=== PATIENT | male | born 1955 | race Caucasian/White ===

== ENCOUNTER 2019-10-27 10:35 | Emergency (ER) | payer OTHER ==
[~2019-10-27] VITALS: Ht 188 cm; Wt 122.5 kg
[~2019-10-27 10:35] MED LIST: KETO10 PO; LORA1 PO; MECL25 PO; METH10; OXYACE5T PO; PROM25 PO; Percocet 5-3251 EACH PO; RANI150; Zofran Odt4 MG SL
[2019-10-27] MEDS ORDERED: ALLO300 PO (11:20)
[2019-10-27] MEDS ORDERED: Catapres0.2 MG PO (11:21)
[2019-10-27] MEDS ORDERED: AMLO10 PO (11:21)
[2019-10-27] MEDS ORDERED: CYCL10 PO (11:21)
[2019-10-27] MEDS ORDERED: HYDHCL25 PO (11:22)
[2019-10-27] MEDS ORDERED: PREG100 PO (11:23)
[2019-10-27] MEDS ORDERED: GENPREOPSU (11:23)
[2019-10-27 11:25] LABS: BASOPHILS ABSOLUTE AUTO 0.12 K/mm3 (0.00-0.23); BASOPHILS PERCENT AUTO 2 % (0-2); EOSINOPHILS ABSOLUTE AUTO 0.94 K/mm3 (0.00-0.68); EOSINOPHILS PERCENT AUTO 13 % (0-6); Hematocrit 48.4 % (37.0-53.0); Hemoglobin 16.1 g/dL (13.5-17.5); IMMATURE GRAN ABSOLUTE AUTO 0.01 K/mm3 (0.00-0.10); IMMATURE GRAN PERCENT AUTO 0 % (0-1); LYMPHOCYTES ABSOLUTE AUTO 1.64 K/mm3 (0.84-5.20); LYMPHOCYTES PERCENT AUTO 22 % (21-46); MONOCYTES ABSOLUTE AUTO 0.64 K/mm3 (0.16-1.47); MONOCYTES PERCENT AUTO 9 % (4-13); Mean Corpuscular HGB 31.8 pg (26.0-34.0); Mean Corpuscular HGB Conc 33.3 g/dL (31.5-36.5); Mean Corpuscular Volume 96 fL (80-100); NEUTROPHILS ABSOLUTE AUTO 4.09 K/mm3 (1.96-9.15); NEUTROPHILS PERCENT AUTO 55 % (41-73); Platelet Count 253 K/mm3 (150-400); RDW Standard Deviation 45.8 fL (35.1-46.3); Red Blood Cell Count 5.06 M/mm3 (4.30-5.90); White Blood Cell Count 7.44 K/mm3 (4.00-11.30)
[2019-10-27 11:39] LABS: Alanine Aminotransfer (ALT/SGP 27 U/L (12-78); Albumin, Blood 3.7 g/dL (3.4-5.0); Albumin/Globulin Ratio 1.1 (0.8-1.8); Alk Phos 87 U/L (50-136); Anion Gap 5 mmol/L (6-16); Aspartate Aminotrans (AST/SGOT 16 U/L (12-37); Bilirubin, Total 0.5 mg/dL (0.1-1.0); Blood Urea Nitrogen 11 mg/dL (8-24); Bun/Creatinine Ratio 13.4 (12.0-20.0); CO2, Blood 25 mmol/L (21-32); Calcium, Blood 8.8 mg/dL (8.5-10.1); Chloride, Blood 111 mmol/L (98-108); Creatinine, Blood 0.82 mg/dL (0.60-1.20); Globulin, Blood 3.4 g/dL (2.2-4.0); Glomerular Filtration Rate >60 (60-); Glucose, Blood 119 mg/dL (70-99); Potassium, Blood 4.1 mmol/L (3.5-5.5); Sodium, Blood 141 mmol/L (136-145); Total Protein, Blood 7.1 g/dL (6.4-8.2); Troponin I <0.015 ng/mL (0.000-0.040)
== END 2019-10-27 13:10 | disposition home or self-care (01) ==
LOC: ER 10:35
PROVIDERS: Emergency Medicine
DX: R07.9 Chest pain, unspecified (principal); Z79.899 Other long term (current) drug therapy
CPT/HCPCS: 36415; 71046; 80053; 83690; 84484; 85025; 93005; 93010; 99284-25

== ENCOUNTER 2020-09-25 17:57 | Emergency (ER) | payer OTHER ==
[~2020-09-25] VITALS: Ht 190.5 cm; Wt 133.8 kg
[~2020-09-25 17:57] MED LIST changes: +ALLO300 PO; +AMLO10 PO; +CYCL10 PO; +Catapres0.2 MG PO; +GENPREOPSU; +HYDHCL25 PO; +PREG100 PO
[2020-09-25] MEDS ORDERED: Vitamin D2000 UNIT PO (18:24)
[2020-09-25] MEDS ORDERED: COLCHICINE0.6 MG PO (18:24)
[2020-09-25] MEDS ORDERED: CYCL10 PO (18:25)
[2020-09-25] MEDS ORDERED: Vitamin B-121000 MCG PO (18:25)
[2020-09-25] MEDS ORDERED: Norco 10-325 T1 EACH PO (18:26)
[2020-09-25] MEDS ORDERED: LIDO5TO TOP (18:26)
[2020-09-25] MEDS ORDERED: Prinivil10 MG PO (18:27)
[2020-09-25 18:55] LABS: BASOPHILS ABSOLUTE AUTO 0.13 K/mm3 (0.00-0.23); BASOPHILS PERCENT AUTO 2 % (0-2); EOSINOPHILS ABSOLUTE AUTO 0.72 K/mm3 (0.00-0.68); EOSINOPHILS PERCENT AUTO 9 % (0-6); Hematocrit 44.4 % (37.0-53.0); Hemoglobin 14.8 g/dL (13.5-17.5); IMMATURE GRAN ABSOLUTE AUTO 0.02 K/mm3 (0.00-0.10); IMMATURE GRAN PERCENT AUTO 0 % (0-1); LYMPHOCYTES ABSOLUTE AUTO 1.99 K/mm3 (0.84-5.20); LYMPHOCYTES PERCENT AUTO 24 % (21-46); MONOCYTES PERCENT AUTO 10 % (4-13); Mean Corpuscular HGB 31.6 pg (26.0-34.0); Mean Corpuscular HGB Conc 33.3 g/dL (31.5-36.5); Mean Corpuscular Volume 95 fL (80-100); Mean Platelet Volume 10.5 fL (9.1-12.4); NEUTROPHILS ABSOLUTE AUTO 4.71 K/mm3 (1.96-9.15); NEUTROPHILS PERCENT AUTO 56 % (41-73); Platelet Count 226 K/mm3 (150-400); RDW Standard Deviation 45.3 fL (35.1-46.3); Red Blood Cell Count 4.69 M/mm3 (4.30-5.90); White Blood Cell Count 8.37 K/mm3 (4.00-11.30)
[2020-09-25 19:09] LABS: Alanine Aminotransfer (ALT/SGP 26 U/L (12-78); Albumin, Blood 3.6 g/dL (3.4-5.0); Albumin/Globulin Ratio 1.2 (0.8-1.8); Alk Phos 81 U/L (50-136); Anion Gap 6 mmol/L (6-16); Aspartate Aminotrans (AST/SGOT 16 U/L (12-37); Bilirubin, Total 0.4 mg/dL (0.1-1.0); Blood Urea Nitrogen 18 mg/dL (8-24); Bun/Creatinine Ratio 16.4 (12.0-20.0); CO2, Blood 28 mmol/L (21-32); Calcium, Blood 8.8 mg/dL (8.5-10.1); Chloride, Blood 110 mmol/L (98-108); Globulin, Blood 2.9 g/dL (2.2-4.0); Glomerular Filtration Rate >60 (60-); Glucose, Blood 93 mg/dL (70-99); Sodium, Blood 144 mmol/L (136-145); Total Protein, Blood 6.5 g/dL (6.4-8.2); Troponin I <0.015 ng/mL (0.000-0.040)
[2020-09-25] MEDS ORDERED: Prednisone50 MG PO (22:08)
[2020-09-25] MEDS ORDERED: TIOT18 INH (22:08)
[2020-09-25] MEDS ORDERED: ALBU90OI INH (22:08)
== END 2020-09-25 22:21 | disposition home or self-care (01) ==
LOC: ER 17:57
PROVIDERS: Emergency Medicine
DX: J44.9 Chronic obstructive pulmonary disease, unspecified (principal); I10 Essential (primary) hypertension; K21.9 Gastro-esophageal reflux disease without esophagitis; F17.200 Nicotine dependence, unspecified, uncomplicated; Z79.899 Other long term (current) drug therapy; Z88.5 Allergy status to narcotic agent; Z88.8 Allergy status to other drugs, medicaments and biological substances; Z87.442 Personal history of urinary calculi
CPT/HCPCS: 71046; 71260; 80053; 83690; 83880; 84484; 85025; 93005; 93010; 94640; 94664; 99285-25; J1100; Q9967

== ENCOUNTER 2020-11-23 20:14 | Emergency (ER) | payer OTHER ==
[~2020-11-23] VITALS: Ht 188 cm; Wt 136.1 kg
[~2020-11-23 20:14] MED LIST changes: +ALBU90OI INH; +COLCHICINE0.6 MG PO; +LIDO5TO TOP; +Norco 10-325 T1 EACH PO; +Prednisone50 MG PO; +Prinivil10 MG PO; +TIOT18 INH; +Vitamin B-121000 MCG PO; +Vitamin D2000 UNIT PO
[2020-11-23 20:51] LABS: BASOPHILS ABSOLUTE AUTO 0.13 K/mm3 (0.00-0.23); BASOPHILS PERCENT AUTO 1 % (0-2); EOSINOPHILS PERCENT AUTO 19 % (0-6); Hemoglobin 15.3 g/dL (13.5-17.5); IMMATURE GRAN ABSOLUTE AUTO 0.02 K/mm3 (0.00-0.10); IMMATURE GRAN PERCENT AUTO 0 % (0-1); LYMPHOCYTES ABSOLUTE AUTO 2.46 K/mm3 (0.84-5.20); LYMPHOCYTES PERCENT AUTO 26 % (21-46); MONOCYTES ABSOLUTE AUTO 0.66 K/mm3 (0.16-1.47); MONOCYTES PERCENT AUTO 7 % (4-13); Mean Corpuscular HGB 30.7 pg (26.0-34.0); Mean Corpuscular HGB Conc 32.6 g/dL (31.5-36.5); Mean Corpuscular Volume 94 fL (80-100); NEUTROPHILS ABSOLUTE AUTO 4.34 K/mm3 (1.96-9.15); NEUTROPHILS PERCENT AUTO 46 % (41-73); Platelet Count 249 K/mm3 (150-400); RDW Coefficient Variation 13.2 % (11.7-14.2); RDW Standard Deviation 46.5 fL (35.1-46.3); Red Blood Cell Count 4.98 M/mm3 (4.30-5.90); White Blood Cell Count 9.41 K/mm3 (4.00-11.30)
[2020-11-23 21:12] LABS: Alanine Aminotransfer (ALT/SGP 31 U/L (12-78); Albumin, Blood 3.8 g/dL (3.4-5.0); Albumin/Globulin Ratio 1.1 (0.8-1.8); Alk Phos 85 U/L (50-136); Anion Gap 8 mmol/L (6-16); Aspartate Aminotrans (AST/SGOT 19 U/L (12-37); Bilirubin, Total 0.4 mg/dL (0.1-1.0); Blood Urea Nitrogen 18 mg/dL (8-24); Bun/Creatinine Ratio 19.8 (12.0-20.0); CO2, Blood 27 mmol/L (21-32); Calcium, Blood 9.2 mg/dL (8.5-10.1); Chloride, Blood 104 mmol/L (98-108); Creatinine, Blood 0.91 mg/dL (0.60-1.20); Globulin, Blood 3.4 g/dL (2.2-4.0); Glomerular Filtration Rate >60 (60-); Glucose, Blood 157 mg/dL (70-99); Potassium, Blood 4.2 mmol/L (3.5-5.5); Sodium, Blood 139 mmol/L (136-145); Total Protein, Blood 7.2 g/dL (6.4-8.2)
[2020-11-23 22:13] LABS: Source, Urine Clean Catch
[2020-11-23 22:15] LABS: Bilirubin, Urine Neg (Neg); Blood, Urine 1+ (Neg); Glucose Qualitative, Urine Neg (Neg); Ketones, Urine Neg (Neg); Leukocyte Esterase, Urine Neg (Neg); Nitrite, Urine Neg (Neg); Protein, Urine Neg (Neg); Specific Gravity, Urine 1.025 (1.003-1.022); Urobilinogen, Urine NORM (Normal)
[2020-11-23 22:20] LABS: Appearance, Urine Clear (Clear); Color, Urine Yellow (P-Yellow)
[2020-11-23 22:21] LABS: Bacteria Few /hpf; Hyaline Casts 0-2 /lpf (0-2); Red Blood Cells, Urine 0-2 /hpf (0-2); Squamous Epithelial Cells Not Seen /hpf (Few); White Blood Cells, Urine 0-2 /hpf (0-5)
[2020-11-23] MEDS ORDERED: CYCL10 PO (22:33)
== END 2020-11-24 01:00 | disposition home or self-care (01) ==
LOC: ER 20:14
PROVIDERS: Physician Assistant
DX: M54.5 Low back pain (principal); G89.29 Other chronic pain; I10 Essential (primary) hypertension; K21.9 Gastro-esophageal reflux disease without esophagitis; F17.200 Nicotine dependence, unspecified, uncomplicated; Z88.5 Allergy status to narcotic agent; Z88.8 Allergy status to other drugs, medicaments and biological substances; Z88.6 Allergy status to analgesic agent; Z87.442 Personal history of urinary calculi; Z79.899 Other long term (current) drug therapy
CPT/HCPCS: 36415; 51798; 74176; 80053; 81001; 83690; 85025; 96374; 96375; 99284-25; A9270; J1885; J2405; J3010

== ENCOUNTER 2022-02-16 05:58 | Day surgery (SDC) | payer OTHER ==
[~2022-02-16] VITALS: Ht 190.5 cm; Wt 138.2 kg
--- NOTE | 2022-02-16 10:48 | NUR ---
PT ARRIVED TO UNIT FROM PACU AT APROX 1015. PT LAYING ON R SIDE W/PILLOW BETWEEN KNEES, DENIES PAIN. TWYLA WRAP TO RLE C/D/I. PT A/O X'S 4. FULL SENSATION PRESEING IN BLE. POLAR PACK IN PLACE. POST OP VSS ON ARRIVAL TO UNIT.
--- NOTE | 2022-02-16 16:10 | NUR ---
SHIFT SUMMARY PT POD 0 R TKA. AQUACEL DRESSING WITH TWYLA WRAP TO RLE C/D/I, POLAR PACK IN PLACE. PT REPORTS PAIN TOLERABLE WITH PO PAIN MEDICTION. PT IN ROOM WITH PT AT THIS TIME, UP TO CHAIR WITH RN ASSIST USING FWW AND GAIT BELT WITH MIN ASSIST-TOLERATED WELL. VOIDING W/O DIFFICULTY. TOLERATING REGULAR DIET WITH NO N/V REPORTED.
--- NOTE | 2022-02-17 04:25 | NUR ---
SHIFT SUMMARY PT DOING WELL THIS SHIFT. DRESSING TO RIGHT KNEE REMAINS CDI. PT AMBULATED HALLWAY MULTIPLE TIMES WITH 1 SBA ASSIST USING GB + FWW. TYLENOL/TORADOL/1-2 ROXICODONE FOR PAIN MANAGEMENT. USES CALL LIGHT APPROPRIATELY.
[2022-02-17 05:34] LABS: BASOPHILS ABSOLUTE AUTO 0.03 K/mm3 (0.00-0.23); BASOPHILS PERCENT AUTO 0 % (0-2); EOSINOPHILS ABSOLUTE AUTO 0.01 K/mm3 (0.00-0.68); EOSINOPHILS PERCENT AUTO 0 % (0-6); Hematocrit 41.8 % (37.0-53.0); Hemoglobin 14.2 g/dL (13.5-17.5); IMMATURE GRAN ABSOLUTE AUTO 0.06 K/mm3 (0.00-0.10); IMMATURE GRAN PERCENT AUTO 0 % (0-1); LYMPHOCYTES ABSOLUTE AUTO 1.02 K/mm3 (0.84-5.20); LYMPHOCYTES PERCENT AUTO 7 % (21-46); MONOCYTES ABSOLUTE AUTO 1.15 K/mm3 (0.16-1.47); MONOCYTES PERCENT AUTO 7 % (4-13); Mean Corpuscular HGB 32.1 pg (26.0-34.0); Mean Corpuscular Volume 95 fL (80-100); NEUTROPHILS ABSOLUTE AUTO 13.23 K/mm3 (1.96-9.15); NEUTROPHILS PERCENT AUTO 85 % (41-73); Platelet Count 248 K/mm3 (150-400); RDW Coefficient Variation 12.8 % (11.7-14.2); RDW Standard Deviation 44.8 fL (35.1-46.3); Red Blood Cell Count 4.42 M/mm3 (4.30-5.90)
[2022-02-17 05:51] LABS: Anion Gap 7 mmol/L (6-16); Blood Urea Nitrogen 17 mg/dL (8-24); Bun/Creatinine Ratio 18.8 (12.0-20.0); CO2, Blood 27 mmol/L (21-32); Calcium, Blood 8.6 mg/dL (8.5-10.1); Chloride, Blood 103 mmol/L (98-108); Creatinine, Blood 0.91 mg/dL (0.60-1.20); Glomerular Filtration Rate >60 (60-); Glucose, Blood 158 mg/dL (70-99); Potassium, Blood 4.5 mmol/L (3.5-5.5); Sodium, Blood 137 mmol/L (136-145)
[2022-02-17] MEDS ORDERED: Aspir 8181 MG PO (08:00)
[2022-02-17] MEDS ORDERED: Percocet 5-3251 EACH PO (08:00)
--- NOTE | 2022-02-17 10:34 | NUR ---
Pt. is awake and in a chair waiting for discharge. Pt. welcomes my visit. Pt. is pleasant and verbalized his pleasure with the good care he has received at [facility]. Established rapport and gave some pastoral encouragement. Prayed for pt. Pt. displayed evidence of confidence and trust in his care. Pt. verbalized gratitutde for the spiritual care visit.
--- NOTE | 2022-02-17 10:52 | NUR ---
DC'D HOME, DC INSTRUCTIONS GIVEN, VERBALIZED UNDERSTANDING, IV DC'D, CATH INTACT.
== END 2022-02-17 10:28 | disposition home or self-care (01) ==
LOC: ORSCMMR 05:58 → ORD 07:30 → ORSCMMR 07:30 → SURS 10:12 → ORSCMMR 02-17 10:28
PROVIDERS: Orthopaedic Surgery
PROC: 0SRC0JA Replacement of Right Knee Joint with Synthetic Substitute, Uncemented, Open Approach (ICD-10-PCS; principal; 2022-02-16 07:30)
PROC: 8E0Y0CZ Robotic Assisted Procedure of Lower Extremity, Open Approach (ICD-10-PCS; principal; 2022-02-16 07:30)
DX: M16.11 Unilateral primary osteoarthritis, right hip (principal); Z96.652 Presence of left artificial knee joint; Z87.891 Personal history of nicotine dependence; E66.9 Obesity, unspecified; Z68.37 Body mass index [BMI] 37.0-37.9, adult; Z79.899 Other long term (current) drug therapy; Z79.82 Long term (current) use of aspirin; I10 Essential (primary) hypertension; J44.9 Chronic obstructive pulmonary disease, unspecified; E78.5 Hyperlipidemia, unspecified; Z68.38 Body mass index [BMI] 38.0-38.9, adult; F43.10 Post-traumatic stress disorder, unspecified
CPT/HCPCS: 27447; S2900; 36415; 73560-RT; 80048; 85025; 94640; 94664; 94760; 97110; 97116; 97162; A9270; C1776; J0171; J0690; J0735; J1100; J1170; J1885; J2405; J2704; J2795; J3010; J7120

== ENCOUNTER 2022-04-10 19:54 | Observation (INO) | payer OTHER ==
[~2022-04-10] VITALS: Ht 190.5 cm; Wt 133.8 kg
[~2022-04-10 19:54] MED LIST changes: +Aspir 8181 MG PO
[2022-04-10 22:36] LABS: BASOPHILS ABSOLUTE AUTO 0.11 K/mm3 (0.00-0.23); BASOPHILS PERCENT AUTO 1 % (0-2); EOSINOPHILS ABSOLUTE AUTO 0.59 K/mm3 (0.00-0.68); EOSINOPHILS PERCENT AUTO 6 % (0-6); Hematocrit 42.3 % (37.0-53.0); Hemoglobin 14.4 g/dL (13.5-17.5); IMMATURE GRAN ABSOLUTE AUTO 0.04 K/mm3 (0.00-0.10); IMMATURE GRAN PERCENT AUTO 0 % (0-1); LYMPHOCYTES ABSOLUTE AUTO 1.97 K/mm3 (0.84-5.20); LYMPHOCYTES PERCENT AUTO 20 % (21-46); MONOCYTES ABSOLUTE AUTO 0.76 K/mm3 (0.16-1.47); MONOCYTES PERCENT AUTO 8 % (4-13); Mean Corpuscular Volume 94 fL (80-100); Mean Platelet Volume 9.8 fL (9.1-12.4); NEUTROPHILS ABSOLUTE AUTO 6.41 K/mm3 (1.96-9.15); NEUTROPHILS PERCENT AUTO 65 % (41-73); Platelet Count 247 K/mm3 (150-400); RDW Coefficient Variation 12.9 % (11.7-14.2); RDW Standard Deviation 44.5 fL (35.1-46.3); White Blood Cell Count 9.88 K/mm3 (4.00-11.30)
[2022-04-10 22:55] LABS: Albumin, Blood 4.2 g/dL (3.4-5.0); Albumin/Globulin Ratio 1.4 (0.8-1.8); Bilirubin, Total 0.5 mg/dL (0.1-1.0); Bun/Creatinine Ratio 21.2 (12.0-20.0); C-REACTIVE PROTEIN, EXT RANGE 0.458 mg/dL (0.000-0.300); Calcium, Blood 9.2 mg/dL (8.5-10.1); Creatinine, Blood 0.71 mg/dL (0.60-1.20); Globulin, Blood 2.9 g/dL (2.2-4.0); Potassium, Blood 3.6 mmol/L (3.5-5.5); Total Protein, Blood 7.1 g/dL (6.4-8.2)
[2022-04-11] MEDS ORDERED: HYDACE10B PO (00:55)
[2022-04-11] MEDS ORDERED: IBU600 M1 PO (00:59)
[2022-04-11 02:56] LABS: SARS-Cov-2 (COVID-19) PCR, MMC NEGATIVE (NEGATIVE)
--- NOTE | 2022-04-11 06:06 | NUR ---
SHIFT SUMMARY PT ER ADMIT THIS SHIFT FOR RIGHT KNEE SWELLING, AND PAIN. S/P RIGHT KNEE REPLACEMENT ABOU 6 WEEKS AGO. PT REPORTS THAT THE PAIN STARTED ON TUESDAY, PT REPORTS THAT PAIN HAS GOTTEN SO BAD THAT HE WAS SICK TO HIS STOMACH AND UNABLE TO EAT. RIGHT LEG IS RED FROM THE KNEE DOWN TO ANKLE. SWELLING EXTENDS FROM KNEE TO FEET WITH 2+ EDEMA. AREA AFFECTED IS WARM TO TOUCH. SURGICAL SCAR IS INTACT, NOT OPEN OR DRAINING. PT REPORTS PAIN 7 (0-10) WHEN ARRIVING TO UNIT. PT MEDICATED WITH NORCO SHORTLY AFTER ADMISSION WITH AFFECT. NASEEM ORDAZ IS AWARE AND IS TO ROUND ON PT IN THE AM, NO ANTIBIOTICS AT THIS TIME. WBC WNL, PT IS AFEBRILE. PT IS NPO AT THIS TIME IN ANTICIPATION FOR POSSIBLE PROCEDURE. PT REPORTS THAT HE HAS NOT BEEN ABLE TO GET MUCH SLEEP, HOWEVER HE IS RESTING IN BED AND DENIES NEEDS WHEN ASKED. BED IN LOWEST POSITION, CALL LIGHT WITHIN REACH.
--- NOTE | 2022-04-11 09:38 | NUR ---
DISCHARGED DR ORDAZ EXAMINED PT AND DISCHARGED W/INSTRUCTIONS TO F/U WITH DR MCKEON IN [address] ORDAZ WRAPPED R KNEE IN TWYLA WRAP AND HAD RN PLACE KNEE HIGH JESUSITA HOSE TO RLE. DC'D IV, CATHETER INTACT. REVIEWED DC INSTRUCTIONS W/PT; VERBALIZED UNDERSTANDING. PT'S PERSONAL ITEMS WERE RETURNED BY SECURITY FROM [facility]. PT LEFT UNIT IN WC W/POSSESSIONS AND DC PAPERWORK IN HAND TO RIDE WAITING OUTSIDE.
== END 2022-04-11 09:25 | disposition home or self-care (01) ==
LOC: ER 19:54 → SURS 19:55
PROVIDERS: Physician Assistant; ADMIT Orthopaedic Surgery
DX: M25.461 Effusion, right knee (principal); M25.561 Pain in right knee; I10 Essential (primary) hypertension; K21.9 Gastro-esophageal reflux disease without esophagitis; G47.30 Sleep apnea, unspecified; Z79.899 Other long term (current) drug therapy; Z79.82 Long term (current) use of aspirin; Z20.822 Contact with and (suspected) exposure to COVID-19
CPT/HCPCS: 36415; 73562-RT; 80053; 83605; 85025; 85651; 86140; 93971; 94760; 99285-25; A9270; U0004

== ENCOUNTER 2022-04-20 10:12 | Inpatient (IN) | payer OTHER ==
[~2022-04-20] VITALS: Ht 190.5 cm; Wt 135.5 kg
[~2022-04-20 10:12] MED LIST changes: +HYDACE10B PO; +IBU600 M1 PO
--- NOTE | 2022-04-20 16:20 | NUR ---
DISCHARGE: Patient up to Ambulate WITH WALKER AND PT'S CANE. PT REPORTS AWARE OF EXCERCISES. REPORTS HAVING ICE MACHINE AND WALKER AT HOME. PPP. PT ABLE TO MOVE EXTREMITIES. PT REPORTS READY TO GO HOME. PT SENT WITH BELONGINGS AND DISCHARGE PAPERWORK INCLUDING PRESCRIPTION. PT TOLERATED PO INTAKE. VSS. PT REPORTS HAVING CONTROLLER FOR NERVE STIMULATOR. Discharge instructions reviewed with patient. Patient verbalizes understanding. Copy given to patient to take home. Patient States Post-Procedure ride home has been arranged. Discharged via wheelchair to private car for ride home.
--- NOTE | 2022-04-21 09:37 | NUR ---
04/21/22 0937 Ivania Mccray VERIFICATIONS, AUDITS
== END 2022-04-20 16:09 | disposition home or self-care (01) | DRG 502 ==
LOC: SURS 10:12 → PRE IP 12:30 → SURS 16:09
PROVIDERS: ADMIT Orthopaedic Surgery
PROC: 0LQL0ZZ Repair Right Upper Leg Tendon, Open Approach (ICD-10-PCS; principal; 2022-04-20 14:00)
DX: S76.111A Strain of right quadriceps muscle, fascia and tendon, initial encounter (principal); G89.29 Other chronic pain; J44.9 Chronic obstructive pulmonary disease, unspecified; F32.A Depression, unspecified; M10.9 Gout, unspecified; E78.5 Hyperlipidemia, unspecified; I10 Essential (primary) hypertension; G47.33 Obstructive sleep apnea (adult) (pediatric); G47.00 Insomnia, unspecified; Z85.828 Personal history of other malignant neoplasm of skin; Z96.651 Presence of right artificial knee joint; Z87.891 Personal history of nicotine dependence; Z98.890 Other specified postprocedural states; Z88.5 Allergy status to narcotic agent; Z88.8 Allergy status to other drugs, medicaments and biological substances; Z79.51 Long term (current) use of inhaled steroids; Z79.82 Long term (current) use of aspirin; Z79.899 Other long term (current) drug therapy; X58.XXXA Exposure to other specified factors, initial encounter
CPT/HCPCS: A9270; J0171; J0690; J2250; J2405; J2704; J2765; J3010; J7120

== ENCOUNTER 2022-12-10 06:04 | Inpatient (IN) | payer OTHER ==
[~2022-12-10] VITALS: Ht 190.5 cm; Wt 122.9 kg
[2022-12-10] MEDS ORDERED: METF500 PO (06:39)
--- NOTE | 2022-12-10 07:48 | NUR ---
Ambulatory in Day Surgery WITH CANE DUE TO RECENT KNEE REPLACEMENT. History, Chart, Medications and Allergies reviewed before start of procedure. Patient confirms NPO status and agrees with scheduled surgery. Pre-Op teaching done. Pt verbalizes understanding. PT REPORTS REMOVING DENTURES AT HOME AND LEAVING THEM THERE. PATIENT STICKER PLACED ON CANE AND PLACED IN PACU WITH BROWN BAG THAT BELONGS TO PATIENT. PAIN STIMULATOR IN PATEINTS BACK REMAINS ON. ALL IMPLANTED, NO EXTERNAL CORDS.
--- NOTE | 2022-12-10 09:09 | NUR ---
12/10/22 0909 Rosanna Drew PT TO OR WITH RASH ON ABDOMEN AND ABOVE GROIN
--- NOTE | 2022-12-10 15:53 | NUR ---
POST OP: REPORT RECEIVED FROM PRESERVATIONISTCANDE PUGA. PT TO UNIT AT ABOUT 1300. PT IS A/O, VSS. SURGICAL SITES WNL. PT REPORTS 6/10 PAIN AT ABD, MEDICATED PER EMAR. ABLE TO DRINK WATER AND EAT JELLO., NO N/V. PT ORIENTED TO ROOM, CALL LIGHT. WILL CTM.
--- NOTE | 2022-12-10 17:37 | NUR ---
SUMMARY: PT IS POD0 ROBOTIC LAP DIASTASIS RECTI REPAIR. PT IS A/O, VSS, SURGICAL SITES WNL. PT HAS DONE WELL, TOLERATING DIET, NO N/V.PAIN APPEARS TO BE WELL MANAGED WITH 1 OXY AND TYLENOL. BINDER IN PLACE TO ABD. PT TAUGHT HOW TO USE I.S. AND DEEP BREATHING ENCOURAGED, ABLE TO WEAN OFF O2. PT DENIES URGE TO VOID, BLADDER SCAN AT 1740 SHOWED 258-WILL MAKE NOC RN AWARE, PT DRINKING FLUIDS. NO ACUTE SAFETY CONCERNS AT THIS TIME.
--- NOTE | 2022-12-11 05:54 | NUR ---
Patient slept well overnight, x1 toradol and scheduled tylenol given for pain. Patient independent in room, steady gait, walks with cane. Bowel movement x3, voiding well. Incisions are clean dry and intact. No questions or concerns at this time.
--- NOTE | 2022-12-11 17:57 | NUR ---
SHIFT SUMMARY POD 1 LAP DIASTASIS RECTI REPAIR, X4 LAP SITES W/ DERMABOND, APPEARS WNL. ABDOMINAL BINDER IN PLACE T/O SHIFT, PATIENT REPORTS RELIEF FROM BINDER. PAIN MANAGED PER EMAR. TOLERATING REGULAR DIET, DENIES N/V. VOIDING W/O DIFFICULTY. HAS NOT YET HAD BM. AMBULATING IN HALLS & ROOM INDEPENDENTLY W/ CANE, WHICH IS BASELINE FOR PATIENT. CALLS APPROPRIATELY, WILL REPORT TO ONCOMING RN AT 1900.
--- NOTE | 2022-12-12 06:28 | NUR ---
Patient was able to sleep well last night and states an improvemnt with pain. PRN and scheduled pain meds given. Zyprexa and Flexeril given x1. Abdominal incisions clean dry and intact, bowel sounds present. Independent in room.
--- NOTE | 2022-12-12 16:45 | NUR ---
SHIFT SUMMARY POD 2 LAP DIASTASIS RECTI. X4 LAP SITES TO LLQ APPEAR WNL, DERMABOND INTACT. ABDOMINAL BINDER IN PLACE. PATIENT REPORTS PAIN TO BE MANAGED PER EMAR. AMBULATING WITHIN ROOM & HALLWAYS INDEPENDENTLY W/ CANE. VSS ON RA. EATING, DRINKING, & VOIDING WELL. PATIENT REPORTS FLATUS, NO BM THIS SHIFT. BOWEL CARE PROVIDED PER ORDERS. CALLS APPROPRIATELY, WILL REPORT TO ONCOMING RN AT 1900.
--- NOTE | 2022-12-13 05:48 | NUR ---
Patient walked several times in shen today. PRN and scheduled meds given. Abdominal incisions clean dry and intact. Bowel sounds present, abdominal slightly tender to touch. Patient is voiding well and was able to have a bowel movement, and passing gas. Patient states no discomfort after eating food. No questions or concerns at this time.
--- NOTE | 2022-12-13 11:17 | NUR ---
DISCHARGE SUMMARY PATIENT ALERT AND ORIENTED THROUGHOUT AM. INDEPENDENT IN ROOM. TOLERATING ADA DIET AND LIQUIDS. VOIDING WELL AND BM WITHIN LAST 24 HOURS. ABD LAP SITES X4 C/D/I, BINDR IN PLACE. PAIN CONTROLLED WITH PO PAIN MEDICINE. DISCHARGE ORDER GIVEN BY DR RIVERO. DISCHARGE EDUCATION GIVEN ON PAIN MEDS, ACTIVITY, INCISION CARE, AND FOLLOW UP APPTS. IV DC'D BY MANAGER LOGISTIC. PATIENT LEFT UNIT VIA WHEELCHAIR FOR HOME WITH FRIEND.
== END 2022-12-13 10:54 | disposition home or self-care (01) | DRG 502 ==
LOC: SURS 06:04 → PRE IP 06:04 → SURS 06:04 → ORD 07:30 → EDSTATUS 07:30 → PRE IP 07:30 → SURS 11:39 → ORD 12:30 → SURS 13:20
PROVIDERS: ADMIT Surgery
PROC: 0KU Muscles, Supplement (ICD-10-PCS; 2022-12-10)
PROC: 0KU Muscles, Supplement (ICD-10-PCS; 2022-12-10)
PROC: 8E0W4CZ Robotic Assisted Procedure of Trunk Region, Percutaneous Endoscopic Approach (ICD-10-PCS; principal; 2022-12-10 07:30)
DX: M62.08 Separation of muscle (nontraumatic), other site (principal); K42.9 Umbilical hernia without obstruction or gangrene; J44.9 Chronic obstructive pulmonary disease, unspecified; F32.A Depression, unspecified; M10.9 Gout, unspecified; E78.5 Hyperlipidemia, unspecified; I10 Essential (primary) hypertension; G47.00 Insomnia, unspecified; G47.33 Obstructive sleep apnea (adult) (pediatric); M19.90 Unspecified osteoarthritis, unspecified site; Z96.653 Presence of artificial knee joint, bilateral; Z85.828 Personal history of other malignant neoplasm of skin; Z79.899 Other long term (current) drug therapy; Z98.890 Other specified postprocedural states; Z87.19 Personal history of other diseases of the digestive system; Z87.891 Personal history of nicotine dependence; Z88.8 Allergy status to other drugs, medicaments and biological substances; Z88.5 Allergy status to narcotic agent
CPT/HCPCS: 82947; 94640; 94760; 96372; 96374; 96376; A9270; C1781; G0378; J0690; J1100; J1170; J1650; J1815; J1885; J2250; J2405; J2704; J2795; J3010; J7120

== ENCOUNTER 2023-08-31 09:21 | Day surgery (SDC) | payer OTHER ==
[~2023-08-31] VITALS: Ht 190.5 cm; Wt 122.5 kg
[~2023-08-31 09:21] MED LIST changes: +CEPH500 PO; +DOXY100 PO; +METF500 PO
[2023-08-31] MEDS ORDERED: ASPI81CH PO (09:55)
--- NOTE | 2023-08-31 11:16 | NUR ---
08/31/[address] IN ROOM AT 1112 TO START LOCAL ANESTHETIC. TIME OUT PERFORMED BY GWENDOLYN.
[2023-08-31 12:04] VITALS: BP 160/90
== END 2023-08-31 12:50 | disposition home or self-care (01) ==
LOC: ORSCSDS 09:21
PROVIDERS: Orthopaedic Surgery
PROC: 01N54ZZ Release Median Nerve, Percutaneous Endoscopic Approach (ICD-10-PCS; principal; 2023-08-31 11:30)
DX: G56.01 Carpal tunnel syndrome, right upper limb (principal); M79.641 Pain in right hand; J44.9 Chronic obstructive pulmonary disease, unspecified; E11.9 Type 2 diabetes mellitus without complications; I10 Essential (primary) hypertension; E78.5 Hyperlipidemia, unspecified; G47.30 Sleep apnea, unspecified; F32.A Depression, unspecified; E66.9 Obesity, unspecified; Z68.34 Body mass index [BMI] 34.0-34.9, adult; Z79.82 Long term (current) use of aspirin; Z79.899 Other long term (current) drug therapy
CPT/HCPCS: 82947; J2250; J7120

== ENCOUNTER 2023-10-04 06:36 | Day surgery (SDC) | payer OTHER ==
[~2023-10-04] VITALS: Ht 190.5 cm; Wt 121.2 kg
[~2023-10-04 06:36] MED LIST changes: +ASPI81CH PO
--- NOTE | 2023-10-04 08:31 | NUR ---
10/04/23 1462 Lisa Sena, KNEES FLEXED AND FOOT OF BED ELEVATED PER PATIENT'S REQUEST, PILLOW UNDER HEAD, LEFT ARM AT SIDE, LEFT RAIL UP.
[2023-10-04 09:57] VITALS: BP 131/76
--- NOTE | 2023-10-04 10:10 | NUR ---
10/04/23 1010 Rick West IV REMOVED INTACT. SITE WNL. PT HAS LUMP NEAR IV SITE. HE STATES LUMP WAS THERE BEFORE HIS ARRIVAL TODAY. HE HAS OTHERS LIKE IT.
== END 2023-10-04 10:05 | disposition home or self-care (01) ==
LOC: ORSCSDS 06:36
PROVIDERS: Orthopaedic Surgery
PROC: 01N40ZZ Release Ulnar Nerve, Open Approach (ICD-10-PCS; principal; 2023-10-04 08:00)
DX: G56.21 Lesion of ulnar nerve, right upper limb (principal); E11.40 Type 2 diabetes mellitus with diabetic neuropathy, unspecified; J44.9 Chronic obstructive pulmonary disease, unspecified; E78.5 Hyperlipidemia, unspecified; I10 Essential (primary) hypertension; G47.33 Obstructive sleep apnea (adult) (pediatric); Z87.891 Personal history of nicotine dependence; Z79.899 Other long term (current) drug therapy; Z79.82 Long term (current) use of aspirin
CPT/HCPCS: 82947; J0171; J0690; J1100; J2250; J2405; J2704; J2795; J3010; J7120

== ENCOUNTER 2023-10-09 14:45 | Emergency (ER) | payer OTHER ==
[~2023-10-09] VITALS: Ht 190.5 cm; Wt 117.9 kg
[2023-10-09 15:01] VITALS: BP 167/90
[2023-10-09 16:08] LABS: Source, Urine Clean Catch
[2023-10-09 16:22] LABS: Appearance, Urine Clear (Clear); Bilirubin, Urine Neg (Neg); Blood, Urine Neg (Neg); Color, Urine Yellow (P-Yellow); Glucose Qualitative, Urine Neg (Neg); Ketones, Urine Neg (Neg); Leukocyte Esterase, Urine Neg (Neg); Nitrite, Urine Neg (Neg); Protein, Urine Neg (Neg); Urobilinogen, Urine NORM (Normal); pH, Urine 6.5 (5.0-8.0)
== END 2023-10-09 17:19 | disposition home or self-care (01) ==
LOC: ER 14:45
PROVIDERS: Physician Assistant
DX: G89.18 Other acute postprocedural pain (principal); M25.521 Pain in right elbow; I10 Essential (primary) hypertension; K21.9 Gastro-esophageal reflux disease without esophagitis; F43.10 Post-traumatic stress disorder, unspecified; M10.9 Gout, unspecified; G47.30 Sleep apnea, unspecified; Z79.84 Long term (current) use of oral hypoglycemic drugs; Z79.82 Long term (current) use of aspirin; Z79.899 Other long term (current) drug therapy; Z88.5 Allergy status to narcotic agent; Z88.8 Allergy status to other drugs, medicaments and biological substances
CPT/HCPCS: 81003; 99283; A9270

== ENCOUNTER 2024-11-12 10:11 | Observation (INO) | payer OTHER, MEDICARE ==
[~2024-11-12] VITALS: Ht 190.5 cm; Wt 117.9 kg
[2024-11-12] MEDS ORDERED: ATOR40TA PO (11:54)
[2024-11-12] MEDS ORDERED: Cyclobenzaprine5 MG PO (11:54)
[2024-11-12] MEDS ORDERED: HYDROCODONE-AC1 EAC7 PO (11:55)
[2024-11-12] MEDS ORDERED: PREG100 PO (11:56)
[2024-11-12] MEDS ORDERED: IBUP600 PO (11:56)
[2024-11-12 12:06] LABS: BASOPHILS PERCENT AUTO 2 % (0-2); EOSINOPHILS ABSOLUTE AUTO 0.55 K/mm3 (0.00-0.68); EOSINOPHILS PERCENT AUTO 8 % (0-6); Hematocrit 47.7 % (37.0-53.0); Hemoglobin 16.3 g/dL (13.5-17.5); IMMATURE GRAN ABSOLUTE AUTO 0.01 K/mm3 (0.00-0.10); IMMATURE GRAN PERCENT AUTO 0 % (0-1); LYMPHOCYTES ABSOLUTE AUTO 1.51 K/mm3 (0.84-5.20); LYMPHOCYTES PERCENT AUTO 22 % (21-46); MONOCYTES ABSOLUTE AUTO 0.71 K/mm3 (0.16-1.47); MONOCYTES PERCENT AUTO 10 % (4-13); Mean Corpuscular HGB 32.3 pg (26.0-34.0); Mean Corpuscular HGB Conc 34.2 g/dL (31.5-36.5); Mean Corpuscular Volume 95 fL (80-100); Mean Platelet Volume 9.8 fL (9.1-12.4); NEUTROPHILS ABSOLUTE AUTO 3.94 K/mm3 (1.96-9.15); NEUTROPHILS PERCENT AUTO 58 % (41-73); Platelet Count 222 K/mm3 (150-400); RDW Coefficient Variation 13.1 % (11.7-14.2); RDW Standard Deviation 45.5 fL (35.1-46.3); Red Blood Cell Count 5.04 M/mm3 (4.30-5.90); White Blood Cell Count 6.82 K/mm3 (4.00-11.30)
[2024-11-12] MEDS ORDERED: Acetaminophen 500 MG Tab PO ONE (12:15)
[2024-11-12 12:22] LABS: Albumin, Blood 3.6 g/dL (3.4-5.0); Albumin/Globulin Ratio 1.2 (0.8-1.8); Bilirubin, Total 0.8 mg/dL (0.1-1.0); Bun/Creatinine Ratio 13.5 (12.0-20.0); Calcium, Blood 9.1 mg/dL (8.5-10.1); Creatinine, Blood 0.96 mg/dL (0.60-1.20); Potassium, Blood 4.1 mmol/L (3.5-5.5); Total Protein, Blood 6.6 g/dL (6.4-8.2)
[2024-11-12] MEDS ORDERED: NS 1,000 ML IV SCH (13:05)
[2024-11-12] MEDS ORDERED: Furosemide 10 MG / ML 2ML Vial IV ONE (13:10)
[2024-11-12] MEDS ORDERED: Metoprolol Tartrate 1 MG/ML 5 ML VIAL IV ONE (13:10)
[2024-11-12] MEDS ORDERED: HYDROcodone 5-APAP 325 TAB PO ONE (13:55)
[2024-11-12 14:07] LABS: Influenza A, PCR NEGATIVE (NEGATIVE); Influenza B, PCR NEGATIVE (NEGATIVE); Resp Syncytial Virus, PCR NEGATIVE (NEGATIVE); SARS-Cov-2 (COVID-19) PCR, MMC NEGATIVE (NEGATIVE)
[2024-11-12] MEDS ORDERED: Metoprolol Tartrate 25 MG Tab PO PRN (14:40)
[2024-11-12] MEDS ORDERED: FLU VACC TS2024-25(6MOS UP)/PF 45 MCG/0.5 ML SYRINGE IM SCH (14:45)
[2024-11-12] MEDS ORDERED: Ondansetron HCl 2 MG / ML 2ML Vial IV PRN (14:45)
[2024-11-12] MEDS ORDERED: HYDROcodone 10-APAP 325 TAB PO PRN (15:40)
[2024-11-12] MEDS ORDERED: Tiotropium Bromide 2.5 MCG/ACT MIST INHAL (10 ACT/4 GM) INH SCH (15:45)
[2024-11-12] MEDS ORDERED: Albuterol HFA200 ACT/6.7 GM INH INH PRN (15:45)
[2024-11-12] MEDS ORDERED: Insulin Regular 100 UNIT/ML 10ML Vial SC SCH (16:30)
[2024-11-12] MEDS ORDERED: Acetaminophen 325 MG TABLET PO PRN (17:55)
[2024-11-12] MEDS ORDERED: Metoprolol Succinate 50 MG TABCR PO SCH (18:00)
[2024-11-12] MEDS ORDERED: Lisinopril 10 MG Tab PO SCH (18:00)
[2024-11-12 18:49] VITALS: BP 152/111
[2024-11-12] MEDS ORDERED: Cyclobenzaprine HCl 10 MG Tab PO SCH (21:00)
[2024-11-12] MEDS ORDERED: Apixaban 5 MG Tab PO SCH (21:00)
[2024-11-12] MEDS ORDERED: Pregabalin 50 MG Capsule PO SCH (21:00)
[2024-11-13 01:54] VITALS: BP 128/87
--- NOTE | 2024-11-13 04:35 | NUR ---
SHIFT SUMMARY: PT AOX4 IN PLEASANT MOOD AND AFFECT. IND TO CHAIR, OTHERWISE SBA AROUND THE ROOM. ANSWERS QUESTIONS AND CALLS APPROPRIATELY. SOME COMPLAINTS OF HEADACHES, MEDICATED PER EMR. STATES HE CAN STILL FEEL "FLUTTERY" MAINTAINING AFIB ACCORDING TO NURSE ADVOCATE. PT DENIES CHEST PAIN AND SOB. ANXIOUS ABOUT CONDITION BUT EAGER TO LEARN HOW TO MANAGE IT. IS ABLE TO PERFORM ALL HIS OWN ADLS. PT SLEPT MOST OF THE NIGHT. PT SLEEPING IN BED CURRENTLY, BED IN LOWEST POSITION, CALL LIGHT IN REACH. CONTINUING CARE.
[2024-11-13 05:12] LABS: BASOPHILS PERCENT AUTO 1 % (0-2); EOSINOPHILS ABSOLUTE AUTO 0.81 K/mm3 (0.00-0.68); EOSINOPHILS PERCENT AUTO 11 % (0-6); Hematocrit 46.4 % (37.0-53.0); Hemoglobin 15.7 g/dL (13.5-17.5); IMMATURE GRAN ABSOLUTE AUTO 0.03 K/mm3 (0.00-0.10); IMMATURE GRAN PERCENT AUTO 0 % (0-1); LYMPHOCYTES PERCENT AUTO 27 % (21-46); MONOCYTES PERCENT AUTO 10 % (4-13); Mean Corpuscular HGB 32.2 pg (26.0-34.0); Mean Corpuscular HGB Conc 33.8 g/dL (31.5-36.5); Mean Corpuscular Volume 95 fL (80-100); NEUTROPHILS ABSOLUTE AUTO 3.83 K/mm3 (1.96-9.15); NEUTROPHILS PERCENT AUTO 50 % (41-73); Platelet Count 205 K/mm3 (150-400); RDW Standard Deviation 45.7 fL (35.1-46.3); Red Blood Cell Count 4.88 M/mm3 (4.30-5.90); White Blood Cell Count 7.67 K/mm3 (4.00-11.30)
[2024-11-13 05:50] LABS: Bun/Creatinine Ratio 18.8 (12.0-20.0); Creatinine, Blood 0.85 mg/dL (0.60-1.20); Potassium, Blood 3.6 mmol/L (3.5-5.5)
[2024-11-13 07:26] VITALS: BP 114/71
[2024-11-13] MEDS ORDERED: Potassium Chloride 20 MEQ TabCR PO ONE (08:00)
[2024-11-13] MEDS ORDERED: Cyanocobalamin 500 MCG Tab PO SCH (09:00)
[2024-11-13] MEDS ORDERED: Allopurinol 300 MG Tab PO SCH (09:00)
[2024-11-13] MEDS ORDERED: Enoxaparin 40 MG/0.4 ML SYR SC SCH (09:00)
[2024-11-13] MEDS ORDERED: Furosemide 20 MG Tab PO SCH (09:00)
[2024-11-13] MEDS ORDERED: Atorvastatin 40 MG Tab PO SCH (09:00)
[2024-11-13] MEDS ORDERED: Cholecalciferol 1000 Unit Tablet (=25MCG) PO SCH (09:00)
[2024-11-13 11:47] VITALS: BP 133/87
--- NOTE | 2024-11-13 11:48 | NUR ---
Upon receiving a referral for spiritual care, I visited the patient. 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 We talk about his goals and plans and his membership at the [facility] in [place]. He speaks of his fears regarding his heart and it not responding well to medications to "get it to come back in rhythm, I provided therapeutic listening and prayer. Patient responded well and showed signs of greater peace.
[2024-11-13] MEDS ORDERED: ELIQUIS5 M2 PO (12:24)
[2024-11-13] MEDS ORDERED: FURO20 PO (12:25)
[2024-11-13] MEDS ORDERED: METO50ER PO (12:27)
[2024-11-13] MEDS ORDERED: POTA10T PO (12:27)
--- NOTE | 2024-11-13 15:29 | NUR ---
PT DISCHARGED AT 1500 AOX4 AND COOPERATIVE OF ALL CARE. PAPERWORK REVIEWED AND EDUCATIONAL MATERIAL SENT WITH PT. PT VERBALIZED HE IS FEELING MUCH BETTER. DR MENA SPENT A LOT OF TIME EXPLAINING MEDICATION CHANGES AND THESE WERE EXPLAINED AGAIN AND HIGHLIGHTED ON PAPERWORK. NO DISTRESS NOTED AND ABLE TO AMBULATE TO WHEEL CHAIR INDEPENDENTLY. FRIEND TO TRANSPORT. ESCORT OUT TO N ENTRANCE.
--- NOTE | 2024-11-14 01:17 | NUR ---
THIS WRITTER IN CHART TO SEE DRUG ADMINISTRATION HX TO FIX A MEDICATION DISCREPENCY.
== END 2024-11-13 15:24 | disposition home or self-care (01) ==
LOC: ER 10:11 → ERHOLD 11:12 → MEDS 11:12
PROVIDERS: Student in an Organized Health Care Education/Training Program; ADMIT Internal Medicine
DX: I48.91 Unspecified atrial fibrillation (principal); E78.5 Hyperlipidemia, unspecified; M10.9 Gout, unspecified; E11.9 Type 2 diabetes mellitus without complications; J44.9 Chronic obstructive pulmonary disease, unspecified; G89.4 Chronic pain syndrome; G47.30 Sleep apnea, unspecified; F43.10 Post-traumatic stress disorder, unspecified; Z79.84 Long term (current) use of oral hypoglycemic drugs; Z79.899 Other long term (current) drug therapy; Z87.891 Personal history of nicotine dependence; Z88.5 Allergy status to narcotic agent; Z88.8 Allergy status to other drugs, medicaments and biological substances; I11.0 Hypertensive heart disease with heart failure; I50.9 Heart failure, unspecified
CPT/HCPCS: 0241U; 36415; 71045; 80048; 80053; 82947; 83735; 83880; 84145; 84443; 84484; 85025; 93005; 93010; 93306; 94640; 94664; 96374; 96375; 99285-25; A9270; G0378; J1940

== ENCOUNTER 2025-02-17 14:23 | Emergency (ER) | payer OTHER ==
[~2025-02-17] VITALS: Ht 188 cm; Wt 117.9 kg
[~2025-02-17 14:23] MED LIST changes: +ATOR40TA PO; +Cyclobenzaprine5 MG PO; +ELIQUIS5 M2 PO; +FURO20 PO; +HYDROCODONE-AC1 EAC7 PO; +IBUP600 PO; +METO50ER PO; +POTA10T PO
[2025-02-17] MEDS ORDERED: NS 1,000 ML IV SCH (14:50)
[2025-02-17 15:27] LABS: BASOPHILS ABSOLUTE AUTO 0.12 K/mm3 (0.00-0.23); BASOPHILS PERCENT AUTO 2 % (0-2); EOSINOPHILS PERCENT AUTO 9 % (0-6); Hematocrit 47.4 % (37.0-53.0); Hemoglobin 16.4 g/dL (13.5-17.5); IMMATURE GRAN ABSOLUTE AUTO 0.01 K/mm3 (0.00-0.10); IMMATURE GRAN PERCENT AUTO 0 % (0-1); LYMPHOCYTES PERCENT AUTO 22 % (21-46); MONOCYTES ABSOLUTE AUTO 0.54 K/mm3 (0.16-1.47); MONOCYTES PERCENT AUTO 8 % (4-13); Mean Corpuscular HGB 32.7 pg (26.0-34.0); Mean Corpuscular HGB Conc 34.6 g/dL (31.5-36.5); Mean Corpuscular Volume 95 fL (80-100); Mean Platelet Volume 9.6 fL (9.1-12.4); NEUTROPHILS ABSOLUTE AUTO 3.97 K/mm3 (1.96-9.15); NEUTROPHILS PERCENT AUTO 59 % (41-73); Platelet Count 252 K/mm3 (150-400); RDW Coefficient Variation 13.2 % (11.7-14.2); RDW Standard Deviation 45.8 fL (35.1-46.3); Red Blood Cell Count 5.01 M/mm3 (4.30-5.90); White Blood Cell Count 6.74 K/mm3 (4.00-11.30)
[2025-02-17 15:58] LABS: Albumin, Blood 3.8 g/dL (3.4-5.0); Albumin/Globulin Ratio 1.3 (0.8-1.8); Bilirubin, Total 0.6 mg/dL (0.1-1.0); Calcium, Blood 8.6 mg/dL (8.5-10.1); Creatinine, Blood 0.84 mg/dL (0.60-1.20); Magnesium, Blood 2.2 mg/dL (1.6-2.4); Potassium, Blood 3.8 mmol/L (3.5-5.5); Total Protein, Blood 6.8 g/dL (6.4-8.2)
[2025-02-17] MEDS ORDERED: Loperamide HCl 2 MG Cap PO ONE (16:40)
[2025-02-17 17:00] LABS: Source, Urine Clean Catch
[2025-02-17 17:07] LABS: Appearance, Urine Clear (Clear); Bilirubin, Urine Neg (Neg); Blood, Urine Neg (Neg); Color, Urine Yellow (P-Yellow); Glucose Qualitative, Urine Neg (Neg); Ketones, Urine Neg (Neg); Leukocyte Esterase, Urine Neg (Neg); Nitrite, Urine Neg (Neg); Protein, Urine Neg (Neg); Specific Gravity, Urine 1.025 (1.003-1.022); Urobilinogen, Urine NORM (Normal)
[2025-02-17] MEDS ORDERED: Lactated Ringer's 1,000 ML IV SCH (18:05)
[2025-02-17 18:42] VITALS: BP 154/97
== END 2025-02-17 18:54 | disposition home or self-care (01) ==
LOC: ER 14:23
PROVIDERS: Physician Assistant
DX: E86.0 Dehydration (principal); R19.7 Diarrhea, unspecified; M54.2 Cervicalgia; R07.9 Chest pain, unspecified; I10 Essential (primary) hypertension; G47.30 Sleep apnea, unspecified; K21.9 Gastro-esophageal reflux disease without esophagitis; E11.9 Type 2 diabetes mellitus without complications; Z98.890 Other specified postprocedural states; Z87.891 Personal history of nicotine dependence; Z88.5 Allergy status to narcotic agent; Z88.8 Allergy status to other drugs, medicaments and biological substances; Z79.01 Long term (current) use of anticoagulants; Z79.84 Long term (current) use of oral hypoglycemic drugs; Z79.899 Other long term (current) drug therapy
CPT/HCPCS: 71046; 80053; 81003; 83735; 84484; 85025; 93005; 93010; 99284-25; A9270; J7120